=== PATIENT | female | born 1945 | race Caucasian/White ===

== ENCOUNTER → 2016-07-28 | Day surgery (SDC) | payer BC, MEDICARE ==
[~2016-07-28] MED LIST: ACET500T33 PO; CALC-507 PO; CHLO25TA PO; DEXAMETHASONE SOD PHOS 20 MG/5 ML VIAL. ONE; DICL100G7 TP; DICY20TA3 PO; ESOM40CA PO; FENTANYL PF 100 MCG/2 ML VIAL. IV PRN; FENTANYL PF 100 MCG/2 ML VIAL. ONE; GLUC1TAB71 PO; GLYCOPYRROLATE 1 MG/5 ML VIAL. ONE; IOHEXOL 300 MG/ML 50 ML VIAL. IV ONE; IOHEXOL 300 MG/ML 50 ML VIAL. ONE; IRBE300T3 PO; IV RINGERS,LACTATED 1000ML 1,000 ML IV SCH; LIDOCAINE; LIDOCAINE 1% 1 ML SYRINGE. ID PRN; LIDOCAINE 2% 100 MG/5 ML DISP.SYRIN. ONE; METO100T11 PO; MIDAZOLAM HCL 2 MG/2 ML VIAL. IV PRN; MULT-245 PO; NEOSTIGMINE METHYLSULFATE 5 MG/5 ML SYRINGE. ONE; ONDANSETRON PF 4 MG/2 ML VIAL. ONE; PROPOFOL 10 MG/ML (20ML) VIAL. IV ONE; PROPOFOL 20 ML IV ONE; ROCURONIUM 50 MG/5 ML VIAL. ONE; TRAM50TA PO; URSO300C13 PO; [UNRECOGNIZED DRUG - OTHER]
[2016-07-28 11:03] LABS: ALBUMIN 3.5 g/dL (3.4-5.0); DIRECT BILIRUBIN 0.1 mg/dL (0.0-0.2); TOTAL BILIRUBIN 0.4 mg/dL (0.2-1.0); TOTAL PROTEIN 7.2 g/dL (6.4-8.2)
[2016-07-28 12:13] VITALS: BP 142/73
--- NOTE | 2016-07-28 12:13 | RAD ---
ERCP, 07/28/2016: History: Common bile duct calculi, pain 3 spot films from an ERCP performed by Dr. Freitas are presented for review. 2.28 minutes of fluoroscopy time was utilized. The biliary tree was partially opacified via an endoscopically placed cannula. The common bile duct is mildly dilated. On the first 2 images there appears to be a filling defect in the distal common bile duct at the ampulla suggesting a calculus. This presumed calculus has been been displaced more superiorly in the duct on image #3. Reportedly stone removal with balloon sweeping of the duct was performed.
== END ==
LOC: ENDOS 09:26
PROVIDERS: ATTEND Internal Medicine Gastroenterology
DX: K80.50 Calculus of bile duct without cholangitis or cholecystitis without obstruction (principal); K58.9 Irritable bowel syndrome, unspecified; I10 Essential (primary) hypertension; M19.90 Unspecified osteoarthritis, unspecified site; Z80.1 Family history of malignant neoplasm of trachea, bronchus and lung
CPT/HCPCS: 36415; 43264; 74330; 80076; C1726; J1100; J2405; J2704; J2710; J3010; J3490; Q9967

== ENCOUNTER → 2017-01-04 | Day surgery (SDC) | payer BC ==
[~2017-01-04] MED LIST changes: +DICL100G18 TP; -DICL100G7 TP; -FENTANYL PF 100 MCG/2 ML VIAL. IV PRN; -FENTANYL PF 100 MCG/2 ML VIAL. ONE; +HYDROmorphone 2 MG/ML VIAL IV PRN; +IOHEXOL 300 MG/ML 100ML VIAL. INT CAT ONE; +IOHEXOL 300 MG/ML 100ML VIAL. ONE; -IOHEXOL 300 MG/ML 50 ML VIAL. IV ONE; -IOHEXOL 300 MG/ML 50 ML VIAL. ONE; -LIDOCAINE 2% 100 MG/5 ML DISP.SYRIN. ONE; +LIDOCAINE 2% PF Vial for OR 5 ML VIAL. ONE; -MIDAZOLAM HCL 2 MG/2 ML VIAL. IV PRN; +MIDAZOLAM HCL/PF 2 MG/2 ML VIAL. IV PRN; +MORPHINE SULFATE 2 MG/ML DISP.SYRIN. IV PRN; +ONDANSETRON PF 4 MG/2 ML VIAL. IV PRN; -ONDANSETRON PF 4 MG/2 ML VIAL. ONE; +PROCHLORPERAZINE 10 MG/2 ML VIAL. IV PRN; -PROPOFOL 10 MG/ML (20ML) VIAL. IV ONE; +fentaNYL PF VIAL 100 MCG/2 ML VIAL IV PRN
--- NOTE | 2017-01-04 15:29 | RAD ---
ERCP, 01/04/2017: History: Abdominal pain, common duct calculi 7 spot films are presented from an ERCP performed by Dr. Freitas. 1 minute and 58 seconds of fluoroscopy time was utilized. The biliary tree was partially opacified via an endoscopically placed cannula. Initial images demonstrate dilatation of the common bile duct with several filling defects in the duct compatible with common duct calculi. Balloon sweeping of the duct was reportedly performed with stone removal. On the last film of the series, an inflated balloon is present in the distal duct. No residual calculi are seen in the duct superior to this level.
[2017-01-04 15:30] VITALS: BP 153/70
== END | disposition home or self-care (01) ==
LOC: SURG 12:58
PROVIDERS: ATTEND Internal Medicine Gastroenterology
DX: K80.50 Calculus of bile duct without cholangitis or cholecystitis without obstruction (principal); I10 Essential (primary) hypertension; M19.90 Unspecified osteoarthritis, unspecified site; Z88.0 Allergy status to penicillin; Z88.3 Allergy status to other anti-infective agents; Z72.89 Other problems related to lifestyle; Z86.69 Personal history of other diseases of the nervous system and sense organs; Z90.49 Acquired absence of other specified parts of digestive tract; Z86.718 Personal history of other venous thrombosis and embolism; Z98.51 Tubal ligation status; Z88.1 Allergy status to other antibiotic agents
CPT/HCPCS: 43264; 74328; C1726; C1757; J1100; J2001; J2405; J2704; J2710; J3490; Q9967

== ENCOUNTER → 2017-05-22 | Day surgery (SDC) | payer BC ==
[~2017-05-22] MED LIST changes: -DEXAMETHASONE SOD PHOS 20 MG/5 ML VIAL. ONE; -GLYCOPYRROLATE 1 MG/5 ML VIAL. ONE; -HYDROmorphone 2 MG/ML VIAL IV PRN; -IOHEXOL 300 MG/ML 100ML VIAL. INT CAT ONE; +IOHEXOL 350 MG/ML 50 ML VIAL. IV ONE; -LIDOCAINE 1% 1 ML SYRINGE. ID PRN; -LIDOCAINE 2% PF Vial for OR 5 ML VIAL. ONE; +METO-247 PO; -METO100T11 PO; -MIDAZOLAM HCL/PF 2 MG/2 ML VIAL. IV PRN; -MORPHINE SULFATE 2 MG/ML DISP.SYRIN. IV PRN; -NEOSTIGMINE METHYLSULFATE 5 MG/5 ML SYRINGE. ONE; -ONDANSETRON PF 4 MG/2 ML VIAL. IV PRN; -PROCHLORPERAZINE 10 MG/2 ML VIAL. IV PRN; -PROPOFOL 20 ML IV ONE; +PROPOFOL 40 ML IV ONE; -ROCURONIUM 50 MG/5 ML VIAL. ONE; +SCOPOLAMINE 1.5MG PATCH. TD ONE; +SCOPOLAMINE 1.5MG PATCH. TD SCH; -fentaNYL PF VIAL 100 MCG/2 ML VIAL IV PRN
--- NOTE | 2017-05-22 16:48 | RAD ---
ERCP BILIARY DUCT SYSYEM Clinical Indication: Common biliary ductal stone, ERCP Comparison: ERCP fluoroscopic images dated 01/04/2017 Findings/impression: 3 fluoroscopic images during ERCP by Dr. Freitas were obtained. Fluoroscopic time was 2.1 minutes. The biliary tree was partially opacified via an endoscopically placed cannula. Initial images demonstrate dilatation of the common bile duct with several filling defects in the duct compatible with common duct calculi. Balloon sweep was then performed for stone removal. Please refer to operative report for full details.
[2017-05-22 17:00] VITALS: BP 161/75
--- NOTE | 2017-05-22 23:18 | CONS ---
DATE OF CONSULTATION: 05/22/2017 REASON FOR CONSULTATION: Recurrent common bile duct stone, status post cholecystectomy, status post endoscopic sphincterotomy. HISTORY OF PRESENT ILLNESS: A 71-year-old female with past medical history significant for recurrent common duct stones as well as hypertension, GERD and colonic diverticulosis, is seen with recurrent pain, nausea, vomiting and abdominal discomfort. She had previously undergone a second opinion at [facility] for additional therapy, medically possible [place], but her lipid panel was not conducive in the interim. Numerous mortalities have occurred from the medication and it is not recommended. With recurrent symptoms, interval ERCP with stone extractions is advised. PAST MEDICAL HISTORY: Hypertension, recurrent common duct stones and colonic diverticulosis. ALLERGIES: PENICILLIN, LEVOFLOXACIN, NITROFURANTOIN, SULFAMETHOXAZOLE AND TRIMETHOPRIM. MEDICATIONS: Include calcium, chlorthalidone, diclofenac, dicyclomine, Nexium, glucosamine, irbesartan, metoprolol, multivitamin, tramadol and ursodiol. SOCIAL HISTORY: She is retired. She does not drink or smoke. FAMILY HISTORY: Significant for lung cancer with her mother. REVIEW OF SYSTEMS: Per records. PAST SURGICAL HISTORY: Status post cholecystectomy, back surgery, hysterectomy and tubal ligation. PHYSICAL EXAMINATION: GENERAL: Reveals well-nourished, well-developed female. VITAL SIGNS: Temperature is 98.4, pulse 96 and respirations 20. HEENT EXAMINATION: Normocephalic and atraumatic. Pupils and extraocular muscles not tested. Sclerae anicteric. NECK: Supple. LUNGS: Clear. CARDIOVASCULAR EXAMINATION: Reveals an S1, S2, without S3, S4 or appreciable murmur. ABDOMEN: Exam reveals soft abdomen. Normal bowel sounds, without appreciable hepatosplenomegaly. EXTREMITIES: Exam reveals no cyanosis, clubbing or edema. IMPRESSION: Recurrent common duct stones and abdominal pain, most likely secondary to lithogenic bile. Recommend interval ERCP with possible stone extractions. Risks and benefits have been discussed. The patient with risk of pancreatitis and she is willing to proceed. TD MONTAÑO MD DR: LAURA/soren JOB#: [id number] / [id number]
== END | disposition home or self-care (01) ==
LOC: ENDOS 14:34
PROVIDERS: ATTEND Internal Medicine Gastroenterology
DX: K80.50 Calculus of bile duct without cholangitis or cholecystitis without obstruction (principal); K21.9 Gastro-esophageal reflux disease without esophagitis; I10 Essential (primary) hypertension; Z88.0 Allergy status to penicillin; Z88.2 Allergy status to sulfonamides; Z88.8 Allergy status to other drugs, medicaments and biological substances; Z90.49 Acquired absence of other specified parts of digestive tract; Z86.718 Personal history of other venous thrombosis and embolism; Z86.69 Personal history of other diseases of the nervous system and sense organs
CPT/HCPCS: 43264; 74328; C1726; C1757; J2704; Q9967

== ENCOUNTER 2018-02-14 11:58 | Observation (INO) | payer BC, MEDICARE ==
[~2018-02-14] VITALS: Ht 157.5 cm; Wt 86.8 kg
[~2018-02-14 11:58] MED LIST changes: -IOHEXOL 300 MG/ML 100ML VIAL. ONE; -IOHEXOL 350 MG/ML 50 ML VIAL. IV ONE; +LIDOCAINE 1% PF 2 ML VIAL. ID PRN; +MIDAZOLAM HCL/PF 2 MG/2 ML VIAL. IV PRN; -PROPOFOL 40 ML IV ONE; -SCOPOLAMINE 1.5MG PATCH. TD ONE; -SCOPOLAMINE 1.5MG PATCH. TD SCH; +fentaNYL PF VIAL 100 MCG/2 ML VIAL IV PRN
[2018-02-14] MEDS ORDERED: MELO15TA23 PO (12:58)
[2018-02-14] MEDS ORDERED: GABA-586 PO (12:58)
[2018-02-14] MEDS ORDERED: IV RINGERS,LACTATED 1000ML 1,000 ML IV ONE (13:00)
[2018-02-14] MEDS ORDERED: KETOROLAC 30 MG/ML VIAL. IV ONE (13:00)
[2018-02-14] MEDS ORDERED: DEXAMETHASONE SOD PHOS 20 MG/5 ML VIAL. ONE (13:18)
[2018-02-14] MEDS ORDERED: LIDOCAINE 2% PF Vial for OR 5 ML VIAL. ONE (13:18)
[2018-02-14] MEDS ORDERED: FAMOTIDINE 20 MG/2 ML VIAL ONE (13:18)
[2018-02-14] MEDS ORDERED: SUCCINYLCHOLINE 200 MG/10 ML VIAL. ONE (13:18)
[2018-02-14] MEDS ORDERED: PROPOFOL 20 ML IV ONE ×2 (13:18→13:42)
[2018-02-14] MEDS ORDERED: ONDANSETRON PF 4 MG/2 ML VIAL. ONE (13:18)
[2018-02-14] MEDS ORDERED: IOHEXOL 300 MG/ML 100ML VIAL. ONE (13:19)
[2018-02-14] MEDS ORDERED: PROPOFOL 60 ML IV ONE (13:22)
[2018-02-14] MEDS ORDERED: IOHEXOL 300 MG/ML 100ML VIAL. IV ONE (13:43)
[2018-02-14] MEDS ORDERED: GLYCOPYRROLATE 1 MG/5 ML VIAL. ONE (13:45)
[2018-02-14] MEDS ORDERED: HYDROcodone/APAP 7.5/325MG 1 TAB TABLET ONE (15:14)
[2018-02-14] MEDS ORDERED: HYDROcodone/APAP 7.5/325MG 1 TAB TABLET PO ONE (15:30)
--- NOTE | 2018-02-14 15:43 | CONS ---
DATE OF CONSULTATION: 02/14/2018 REFERRING PHYSICIAN: Dr. Luis Manuel Tee. REASON: Recurrent common duct stones. HISTORY OF PRESENT ILLNESS: This is a 72-year-old female whose past medical history is significant for hypertension, choledocholithiasis, colonic diverticulosis who was seen for interval ERCP with stone extraction. She has been maintained on Actigall, status post cholecystectomy, status post sphincterotomy. She is here with recurrent pain. Approximately 9 months ago, a second opinion at was obtained and no additional therapy was recommended at that time. PAST MEDICAL HISTORY: Hypertension, recurrent common duct stones, colonic diverticular disease. ALLERGIES: PENICILLIN, ERYTHROMYCIN, LEVOFLOXACIN, NITROFURANTOIN. MEDICATIONS: Chlorthalidone, diclofenac, dicyclomine, omeprazole, gabapentin, glucosamine, irbesartan, meloxicam, metoprolol. SOCIAL HISTORY: Does not drink or smoke. FAMILY HISTORY: Significant for lung cancer with her mother. REVIEW OF SYSTEMS: Status post cholecystectomy, back surgery, hysterectomy, tubal ligation. REVIEW OF SYSTEMS: Per records. PHYSICAL EXAMINATION: GENERAL: A well-nourished, well-developed female who is alert and cooperative, in no acute distress. VITAL SIGNS: Temperature is 98.1, pulse 78, respirations 20. HEENT: Normocephalic and atraumatic head. Pupils and extraocular muscles are not tested. Sclerae are anicteric. NECK: Supple. LUNGS: Clear. CARDIOVASCULAR: Reveals an S1, S2 without S3, S4 or appreciable murmur. ABDOMEN: Reveals soft abdomen, normal bowel sounds, without appreciable hepatosplenomegaly. Multiple surgical incisions. EXTREMITIES: No cyanosis, clubbing, edema. IMPRESSION: Choledocholithiasis, recurrent. We will recommend ERCP and stone extraction. Risks and benefits of procedure including risk of hemorrhage and perforation were discussed and the patient is willing to proceed at this time. TD MONTAÑO MD DR: LAURA/soren JOB#: [id number] / [id number]
--- NOTE | 2018-02-14 15:55 | PDOC ---
Subjective: Subjective: Burning upper abd pain w/ vomiting after ERCP w/ stone extraction. Desires admission. Objective: Vital Signs: Vital Signs Date Time Temp Pulse Resp B/P (MAP) Pulse Ox O2 Delivery O2 Flow Rate FiO2 02/14/18 15:51 71 16 123/59 98 Room Air 02/14/18 14:09 97.3 10 97.3 PE: GEN: NAD, sitting in chair in outpt LUNGS: CTAB HEART: RRR ABD: BS+, soft, epigastric discomfort NEURO/PSYCH: A & O 3 A/P: Recurrent choledocholithiasis Abd pain and n/v s/p interval ERCP -- Plans to admit - d/w Dr. Molina. NPO w/ ice chips, labs in a.CAREY Delong Feb 14, 2018 15:55
--- NOTE | 2018-02-14 16:06 | PDOC1 ---
History and Physical Date of Admission Date of Admission DATE: 02/14/18 TIME: 16:06 Source Source: Chart review, Patient History of Present Illness History of Present Illness Serenity is a 72-year-old female with Arlet removal about 50 years, ago, now with recurrent stones and pain , choledocholithiasis, colonic diverticulosis had pain s/p ERCP with stone extraction today she has pain intermittently on Actigall, status post sphincterotomy. pain post procedure, she requested admit for obs overnight Past Medical History Past Medical History arlet Cardiovascular: HTN GI: Diverticulosis, Other (choledocholithiasis) Social History Smoke: No ALCOHOL: none Drugs: None Current Medications Current Medications Current Medications Midazolam HCl (Versed) 2 mg PRN 1X PRN IV PRIOR TO PROCEDURE; Start 02/14/18 at 07:15; Stop 02/15/18 at 07:14 Fentanyl Citrate (Fentanyl 2ml Vial) 25 mcg PRN Q5MIN PRN IV X 2 DOSES FOR PAIN ; Start 02/14/18 at 07:15; Stop 02/15/18 at 07:14 Fentanyl Citrate (Fentanyl 2ml Vial) 50 mcg PRN Q5MIN PRN IV X 2 DOSES FOR PAIN ; Start 02/14/18 at 07:15; Stop 02/15/18 at 07:14 Ringer's Solution 1,000 ml @ 125 mls/hr Q8H IV Last administered on 02/14/18at 13:11; Start 02/14/18 at 07:06; Stop 02/14/18 at 19:05 Lidocaine HCl (Xylocaine-Mpf 1% 2ml Vial) 2 ml 1X PRN PRN ID IV START; Start at 07:15; Stop 02/15/18 at 07:14 Ketorolac Tromethamine (Toradol 30mg Vial) 30 mg 1X ONCE IV Last administered on 02/14/18at 13:13; Start 02/14/18 at 13:00; Stop 02/14/18 at 13:01; Status DC Ringer's Solution 1,000 ml @ 75 mls/hr 1X ONCE IV ; Start 02/14/18 at 13:00; Stop 02/15/18 at 02:19 Ondansetron HCl (Zofran) 4 mg STK-MED ONCE .ROUTE ; Start 02/14/18 at 13:18; Stop 02/14/18 at 13:19; Status DC Dexamethasone Sodium Phosphate (Decadron) 20 mg STK-MED ONCE .ROUTE ; Start at 13:18; Stop 02/14/18 at 13:19; Status DC Propofol 20 ml @ As Directed STK-MED ONCE IV ; Start 02/14/18 at 13:18; Stop at 13:19; Status DC Lidocaine HCl (Lidocaine Pf 2% Vial) 5 ml STK-MED ONCE .ROUTE ; Start 02/14/18 at 13:18; Stop 02/14/18 at 13:19; Status DC Famotidine (Pepcid Vial) 20 mg STK-MED ONCE .ROUTE ; Start 02/14/18 at 13:18; Stop 02/14/18 at 13:19; Status DC Succinylcholine Chloride (Anectine) 200 mg STK-MED ONCE .ROUTE ; Start 02/14/18 at 13:18; Stop 02/14/18 at 13:19; Status DC Iohexol (Omnipaque 300 Mg/ml) 100 ml STK-MED ONCE .ROUTE ; Start 02/14/18 at 13: 19; Stop 02/14/18 at 13:20; Status DC Propofol 60 ml @ As Directed STK-MED ONCE IV ; Start 02/14/18 at 13:22; Stop at 13:23; Status DC Propofol 20 ml @ As Directed STK-MED ONCE IV ; Start 02/14/18 at 13:42; Stop at 13:43; Status DC Glycopyrrolate (Robinul) 1 mg STK-MED ONCE .ROUTE ; Start 02/14/18 at 13:45; Stop 02/14/18 at 13:46; Status DC Iohexol (Omnipaque 300 Mg/ml) 100 ml STK-MED ONCE IV Last administered on at 13:43; Start 02/14/18 at 13:43; Stop 02/14/18 at 13:57; Status DC Acetaminophen/ Hydrocodone Bitart (Lortab 7.5/325) 1 tab 1X ONCE PO Last administered on 02/14/18at 15:18; Start 02/14/18 at 15:30; Stop 02/14/18 at 15:31 ; Status DC Acetaminophen/ Hydrocodone Bitart (Lortab 7.5/325) 1 tab STK-MED ONCE .ROUTE ; Start 02/14/18 at 15:14; Stop 02/14/18 at 15:15; Status DC Acetaminophen (Tylenol) 1,000 mg TID PO ; Start 02/14/18 at 21:00; Status UNV Chlorthalidone (Thalitone) 12.5 mg QODAY PO ; Start 02/16/18 at 09:00; Status UNV Metoprolol Succinate (Toprol Xl) 50 mg DAILY PO ; Start 02/15/18 at 09:00; Status UNV Non-Formulary Medication (Dicyclomine Hcl ) 1 tab DAILY PO ; Start 02/15/18 at 09:00; Status UNV Non-Formulary Medication (Esomeprazole Magnesium (Nexium Capsule)) 1 cap DAILY PO ; Start 02/15/18 at 09:00; Status UNV Non-Formulary Medication (Gabapentin ) 300 mg TID PO ; Start 02/14/18 at 21:00; Status UNV Non-Formulary Medication (Irbesartan ) 1 tab DAILY PO ; Start 02/15/18 at 09:00 ; Status UNV Non-Formulary Medication (Meloxicam ) 1 tab DAILY PO ; Start 02/15/18 at 09:00; Status UNV Non-Formulary Medication (Ursodiol (Actigall)) 600 mg BID PO ; Start 02/14/18 at 21:00; Status UNV Active Scripts Active Reported Meloxicam 15 Mg Tablet 1 Tab PO DAILY Gabapentin 300 Mg Capsule 300 Mg PO TID Irbesartan 300 Mg Tablet 1 Tab PO DAILY Voltaren (Diclofenac Sodium) 100 Gm Gel..gram. 100 Gm TP Metoprolol Succinate ( Xl ) (Metoprolol Succinate) 100 Mg Tab.er.24h 50 Mg PO DAILY Multi Vitamin Daily (Multivitamin) 1 Each Tablet 1 Each PO Osteo Bi-Flex Caplet (Glucosamine/D3/Boswellia Cierra) 1 Each Tablet 1 Each PO Calcium 600 + D Tablet (Calcium Carbonate/Vitamin D3) 1 Each Tablet 1 Each PO Tylenol Extra Strength (Acetaminophen) 500 Mg Tablet 1,000 Mg PO TID Actigall (Ursodiol) 300 Mg Capsule 600 Mg PO BID Tramadol Hcl 50 Mg Tablet 1 Tab PO TID Dicyclomine Hcl 20 Mg Tablet 1 Tab PO DAILY Nexium Capsule (Esomeprazole Magnesium) 40 Mg Capsule.dr 1 Cap PO DAILY Chlorthalidone 25 Mg Tablet 0.5 Tab PO QODAY Irbesartan 300 Mg Tablet 1 Tab PO DAILY Allergies Allergies: Coded Allergies: Penicillins (Verified Allergy, Intermediate, Rash, 02/14/18) cefdinir (Verified Allergy, Intermediate, Rash, 02/14/18) levofloxacin (Verified Allergy, Intermediate, Rash, 02/14/18) nitrofurantoin (Verified Allergy, Intermediate, Rash, 02/14/18) sulfamethoxazole (Verified Allergy, Intermediate, Rash, 02/14/18) trimethoprim (Verified Allergy, Intermediate, Rash, 02/14/18) erythromycin base (Verified Adverse Reaction, Intermediate, Nausea and Vomiting, 02/14/18) ROS General: No: Chills, Night Sweats, Fatigue, Malaise, Appetite, Other PSYCHOLOGICAL ROS: No: Anxiety, Behavioral Disorder, Concentration difficultie , Decreased libido, Depression, Disorientation, Hallucinations, Hostility, Irritablity, Memory difficulties, Mood Swings, Obsessive thoughts, Physical abuse, Sexual abuse, Sleep disturbances, Suicidal ideation, Other Eyes: No Blurry vision, No Decreased vision, No Double vision, No Dry eyes, No Excessive tearing, No Eye Pain, No Itchy Eyes, No Loss of vision, No Photophobia , No Scotomata, No Uses contacts, No Uses glasses, No Other HEENT: No: Heacaches, Visual Changes, Hearing change, Nasal congestion, Nasal discharge, Oral lesions, Sinus pain, Sore Throat, Epistaxis, Sneezing, Snoring, Tinnitus, Vertigo, Vocal changes, Other Respiratory: No: Cough, Hemoptysis, Orthopnea, Pleuritic Pain, Shortness of breath, SOB with excertion, Sputum Changes, Stridor, Tachypnea, Wheezing, Other Gastrointestinal: Yes Nausea, Yes Abdominal Pain Genitourinary: No Dysuria, No Frequency, No Incontinence, No Hematuria, No Retention, No Discharge, No Urgency, No Pain, No Flank Pain, No Other, No , No , No , No , No , No , No Musculoskeletal: No Gait Disturbance, No Joint Pain, No Joint Stiffness, No Joint Swelling, No Muscle Pain, No Muscular Weakness, No Pain In:, No Swelling In:, No Other Neurological: No Behavorial Changes, No Bowel/Bladder ControlChng, No Confusion , No Dizziness, No Gait Disturbance, No Headaches, No Impaired Coord/balance, No Memory Loss, No Numbness/Tingling, No Seizures, No Speech Problems, No Tremors, No Visual Changes, No Weakness, No Other Skin: No Dry Skin, No Eczema, No Hair Changes, No Lumps, No Mole Changes, No Mottling, No Nail Changes, No Pruritus, No Rash, No Skin Lesion Changes, No Other, No Acne Physical Exam General: Alert, Oriented X3, Cooperative, No acute distress HEENT: Atraumatic, EOMI, Mucous membr. moist/pink Lungs: Normal air movement Heart: S1S2, no murmurs Abdomen: Normal bowel sounds, Soft (tender mid) Rectal Exam: not examined Extremities: No cyanosis, No edema, Normal pulses Skin: Other (small wound in groin documented by RN) Neuro: Normal tone, Sensation intact Psych/Mental Status: Mood NL Vitals Vitals Vital Signs Date Time Temp Pulse Resp B/P (MAP) Pulse Ox O2 Delivery O2 Flow Rate FiO2 02/14/18 15:51 71 16 123/59 98 Room Air 02/14/18 14:09 97.3 10 97.3 VTE Prophylaxis Ordered VTE Prophylaxis Devices: No VTE Pharmacological Prophylaxi: No Assessment/Plan Assessment/Plan acute abd pain choledocholithiasis obesity, BMI 35 htn obs TY PARMAR MD Feb 14, 2018 16:06
[2018-02-14] MEDS ORDERED: fentaNYL PF VIAL 100 MCG/2 ML VIAL IV PRN (16:15)
[2018-02-14] MEDS ORDERED: oxyCODONE/APAP 7.5/325 1 TAB TABLET PO PRN (16:15)
--- NOTE | 2018-02-14 16:24 | RAD ---
ERCP, 02/14/2018: HISTORY: Common duct calculus 7 spot films from an ERCP performed by Dr. Freitas are presented for review. 3 minutes and 8 seconds of fluoroscopy time was utilized. Balloon sweeping of the duct was performed. On the initial images there is a small filling defect in the partially opacified distal common bile duct compatible with a retained calculus. On image #7 the bile ducts are fairly well opacified and no residual calculus is seen. The common bile duct appears chronically dilated. Electronically signed by: Florian Enamorado MD (02/14/2018 4:21 PM) [facility]
[2018-02-14 16:45] VITALS: BP 145/56
[2018-02-14 19:00] VITALS: BP 151/41
[2018-02-14] MEDS ORDERED: ECHI350C PO (20:21)
[2018-02-14] MEDS ORDERED: GLUC100016 PO (20:21)
[2018-02-14] MEDS ORDERED: GABA600T2 PO (20:21)
[2018-02-14] MEDS ORDERED: MULT-245 PO (20:21)
[2018-02-14] MEDS ORDERED: DICL100G24 TP (20:21)
[2018-02-14] MEDS ORDERED: URSO300C26 PO (20:21)
[2018-02-14] MEDS ORDERED: ASPI-630 PO (20:21)
[2018-02-14] MEDS ORDERED: LACT1CAP2 PO (20:21)
[2018-02-14] MEDS ORDERED: TRAM50TA PO (20:21)
[2018-02-14] MEDS: ACETAMINOPHEN 500 MG TABLET PO SCH (21:08)
[2018-02-14] MEDS: GABAPENTIN 300 MG CAPSULE. PO SCH (21:08)
[2018-02-14] MEDS: URSODIOL 300 MG CAPSULE. PO SCH (21:08)
[2018-02-14 23:00] VITALS: BP 138/66
[2018-02-15 03:00] VITALS: BP 124/58
[2018-02-15 07:00] VITALS: BP 133/67
[2018-02-15 07:03] LABS: CALCIUM 10.2 mg/dL (8.5-10.1); GFR 54.3; POTASSIUM 4.2 mmol/L (3.5-5.1)
[2018-02-15 07:08] LABS: ALBUMIN 3.5 g/dL (3.4-5.0); ALBUMIN/GLOBULIN RATIO 0.8 (1.0-1.7); TOTAL BILIRUBIN 0.5 mg/dL (0.2-1.0); TOTAL PROTEIN 7.8 g/dL (6.4-8.2)
[2018-02-15 07:09] LABS: BASO % 0 % (0-3); EOS % 0 % (0-3); HEMATOCRIT 34.7 % (36.0-47.0); HEMOGLOBIN 11.3 g/dL (12.0-15.5); LYMPH # 1.4 x10^3/uL (1.0-4.8); LYMPH % 11 % (24-48); MEAN CORPUSCULAR HEMOGLOBIN 28 pg (25-35); MEAN CORPUSCULAR HGB CONC 33 g/dL (31-37); MEAN CORPUSCULAR VOLUME 86 fL (79-100); MONO % 8 % (0-9); NEUT # 10.7 x10^3uL (1.8-7.7); NEUT % 82 % (31-73); PLATELET COUNT 439 x10^3/uL (140-400); RED BLOOD COUNT 4.05 x10^6/uL (3.50-5.40); RED CELL DISTRIBUTION WIDTH 13.6 % (11.5-14.5); WHITE BLOOD COUNT 13.1 x10^3/uL (4.0-11.0)
[2018-02-15] MEDS ORDERED: PANTOPRAZOLE 40 MG TABLET.DR. PO SCH (07:30)
[2018-02-15] MEDS: ACETAMINOPHEN 500 MG TABLET PO SCH (08:07)
[2018-02-15] MEDS: URSODIOL 300 MG CAPSULE. PO SCH (08:08)
[2018-02-15] MEDS: GABAPENTIN 300 MG CAPSULE. PO SCH (08:09)
[2018-02-15] MEDS ORDERED: METOPROLOL SUCC 24HR ER 50 MG TAB.ER.24H. PO SCH (09:00)
[2018-02-15] MEDS ORDERED: MELOXICAM 7.5 MG TABLET PO SCH (09:00)
[2018-02-15] MEDS ORDERED: LOSARTAN POTASSIUM 50 MG TABLET. PO SCH (09:00)
[2018-02-15] MEDS ORDERED: DICYCLOMINE HCL 10 MG CAPSULE PO SCH (09:00)
--- NOTE | 2018-02-15 09:07 | PDOC ---
Subjective: Subjective: Feels better, has been walking around w/ walker. Denies abd pain and n/v. Had mashed potatoes last night and eggs and toast this morning. Did have a yellowish runny stool - not unusual for her from time to time. Has questions about labs. Objective: Vital Signs: Vital Signs Date Time Temp Pulse Resp B/P (MAP) Pulse Ox O2 Delivery O2 Flow Rate FiO2 02/15/18 08:09 77 133/67 02/15/18 07:00 98.4 20 98 Room Air 98.4 02/14/18 14:09 10 Imaging: ERCP 7 spot films from an ERCP performed by Dr. Freitas are presented for review. 3 minutes and 8 seconds of fluoroscopy time was utilized. Balloon sweeping of the duct was performed. On the initial images there is a small filling defect in the partially opacified distal common bile duct compatible with a retained calculus. On image #7 the bile ducts are fairly well opacified and no residual calculus is seen. The common bile duct appears chronically dilated. PE: GEN: NAD, up to chair, smiling LUNGS: CTAB HEART: RRR ABD: NABS, S/ND/NT NEURO/PSYCH: A & O 3 A/P: Recurrent choledocholithiasis Abd pain and n/v s/p interval ERCP - resolved -- Symptoms resolved, tolerating PO. Okay to DC, follow-up w/ Dr. Freitas. CAREY THOMPSON Feb 15, 2018 09:07
--- NOTE | 2018-02-15 09:34 | PDOC3 ---
Discharge Summary Visit Information Date of Admission: Feb 14, 2018 Date of Discharge: Feb 15, 2018 Admitting Diagnosis Comment: Post ERCP pain Brief Hospital Course Allergies Allergies Coded Allergies Type Severity Reaction Last Updated Verified Penicillins Allergy Intermediate Rash 02/14/18 Yes cefdinir Allergy Intermediate Rash 02/14/18 Yes levofloxacin Allergy Intermediate Rash 02/14/18 Yes nitrofurantoin Allergy Intermediate Rash 02/14/18 Yes sulfamethoxazole Allergy Intermediate Rash 02/14/18 Yes trimethoprim Allergy Intermediate Rash 02/14/18 Yes erythromycin base Adverse Reaction Intermediate Nausea and Vomiting 02/14/18 Yes Vital Signs Vital Signs Date Time Temp Pulse Resp B/P (MAP) Pulse Ox O2 Delivery O2 Flow Rate FiO2 02/15/18 08:09 77 133/67 02/15/18 07:00 98.4 20 98 Room Air 98.4 02/14/18 14:09 10 Lab Results Laboratory Tests Test 02/15/18 06:37 White Blood Count 13.1 x10^3/uL (4.0-11.0) Red Blood Count 4.05 x10^6/uL (3.50-5.40) Hemoglobin 11.3 g/dL (12.0-15.5) Hematocrit 34.7 % (36.0-47.0) Mean Corpuscular Volume 86 fL (79-100) Mean Corpuscular Hemoglobin 28 pg (25-35) Mean Corpuscular Hemoglobin Concent 33 g/dL (31-37) Red Cell Distribution Width 13.6 % (11.5-14.5) Platelet Count 439 x10^3/uL (140-400) Neutrophils (%) (Auto) 82 % (31-73) Lymphocytes (%) (Auto) 11 % (24-48) Monocytes (%) (Auto) 8 % (0-9) Eosinophils (%) (Auto) 0 % (0-3) Basophils (%) (Auto) 0 % (0-3) Neutrophils # (Auto) 10.7 x10^3uL (1.8-7.7) Lymphocytes # (Auto) 1.4 x10^3/uL (1.0-4.8) Monocytes # (Auto) 1.0 x10^3/uL (0.0-1.1) Eosinophils # (Auto) 0.0 x10^3/uL (0.0-0.7) Basophils # (Auto) 0.0 x10^3/uL (0.0-0.2) Sodium Level 132 mmol/L (136-145) Potassium Level 4.2 mmol/L (3.5-5.1) Chloride Level 96 mmol/L (98-107) Carbon Dioxide Level 29 mmol/L (21-32) Anion Gap 7 (6-14) Blood Urea Nitrogen 19 mg/dL (7-20) Creatinine 1.0 mg/dL (0.6-1.0) Estimated GFR (Cockcroft-Gault) 54.3 BUN/Creatinine Ratio 19 (6-20) Glucose Level 107 mg/dL (70-99) Calcium Level 10.2 mg/dL (8.5-10.1) Total Bilirubin 0.5 mg/dL (0.2-1.0) Aspartate Amino Transf (AST/SGOT) 26 U/L (15-37) Alanine Aminotransferase (ALT/SGPT) 38 U/L (14-59) Alkaline Phosphatase 99 U/L (46-116) Total Protein 7.8 g/dL (6.4-8.2) Albumin 3.5 g/dL (3.4-5.0) Albumin/Globulin Ratio 0.8 (1.0-1.7) Amylase Level 116 U/L (25-115) Lipase 97 U/L (73-393) Laboratory Tests Test 02/15/18 06:37 White Blood Count 13.1 x10^3/uL (4.0-11.0) Red Blood Count 4.05 x10^6/uL (3.50-5.40) Hemoglobin 11.3 g/dL (12.0-15.5) Hematocrit 34.7 % (36.0-47.0) Mean Corpuscular Volume 86 fL (79-100) Mean Corpuscular Hemoglobin 28 pg (25-35) Mean Corpuscular Hemoglobin Concent 33 g/dL (31-37) Red Cell Distribution Width 13.6 % (11.5-14.5) Platelet Count 439 x10^3/uL (140-400) Neutrophils (%) (Auto) 82 % (31-73) Lymphocytes (%) (Auto) 11 % (24-48) Monocytes (%) (Auto) 8 % (0-9) Eosinophils (%) (Auto) 0 % (0-3) Basophils (%) (Auto) 0 % (0-3) Neutrophils # (Auto) 10.7 x10^3uL (1.8-7.7) Lymphocytes # (Auto) 1.4 x10^3/uL (1.0-4.8) Monocytes # (Auto) 1.0 x10^3/uL (0.0-1.1) Eosinophils # (Auto) 0.0 x10^3/uL (0.0-0.7) Basophils # (Auto) 0.0 x10^3/uL (0.0-0.2) Sodium Level 132 mmol/L (136-145) Potassium Level 4.2 mmol/L (3.5-5.1) Chloride Level 96 mmol/L (98-107) Carbon Dioxide Level 29 mmol/L (21-32) Anion Gap 7 (6-14) Blood Urea Nitrogen 19 mg/dL (7-20) Creatinine 1.0 mg/dL (0.6-1.0) Estimated GFR (Cockcroft-Gault) 54.3 BUN/Creatinine Ratio 19 (6-20) Glucose Level 107 mg/dL (70-99) Calcium Level 10.2 mg/dL (8.5-10.1) Total Bilirubin 0.5 mg/dL (0.2-1.0) Aspartate Amino Transf (AST/SGOT) 26 U/L (15-37) Alanine Aminotransferase (ALT/SGPT) 38 U/L (14-59) Alkaline Phosphatase 99 U/L (46-116) Total Protein 7.8 g/dL (6.4-8.2) Albumin 3.5 g/dL (3.4-5.0) Albumin/Globulin Ratio 0.8 (1.0-1.7) Amylase Level 116 U/L (25-115) Lipase 97 U/L (73-393) Brief Hospital Course Ms. Graves is a 72 old very pleasant female who was admitted observation overnight after pain post-ERCP. He has history of cholecystectomy some 50 years ago, but since then recurrent stones. Admitted under GI service with consult to us for postop pain. Otherwise she did pretty well overnight, no needed by mouth or IV pain medicines. Ready for discharge later home. To wait for Dr. Freitas to round at around 11 AM prior to discharge No PT needs, no Rx needed Discharge time less than 30 minutes Procedures performed ERCP Discharge Information Condition at Discharge: Improved, Stable Disposition/Orders: D/C to Home Scheduled Acetaminophen (Tylenol Extra Strength) 500 Mg Tablet, 1,000 MG PO TID, (Reported ) Entered as Reported by: STEPHEN BRASHER on 02/18/151453 Last Action: Continued on 02/14/181603 by TY PARMAR Aspirin (Aspirin) 81 Mg Tab.chew, 1 TAB PO DAILY, #30 Ref 3 (Reported) Entered as Reported by: THELMA KHAN on 02/14/182020 Last Action: New Order on 02/14/182020 by THELMA KHAN Chlorthalidone (Chlorthalidone) 25 Mg Tablet, 0.5 TAB PO QODAY, #30 Ref 5 ( Reported) Entered as Reported by: STEPHEN BRASHER on 02/18/151453 Last Action: Continued on 02/14/181603 by TY PARMAR Diclofenac Sodium (Diclofenac Sodium) 100 Gm Gel..gram., 100 GM TP PRN, ( Reported) Entered as Reported by: THELMA KHAN on 02/14/182020 Last Action: New Order on 02/14/182020 by THELMA KHAN Dicyclomine Hcl (Dicyclomine Hcl) 20 Mg Tablet, 1 TAB PO DAILY, #30 Ref 1 ( Reported) Entered as Reported by: STEPHEN BRASHER on 02/18/151453 Last Action: Converted on 02/14/181603 by TY PARMAR Echinacea Purpurea Aerial (Echinacea) 350 Mg Capsule, 760 MG PO DAILY, (Reported ) Entered as Reported by: THELMA KHAN on 02/14/182020 Last Action: New Order on 02/14/182020 by THELMA KHAN Esomeprazole Magnesium (Nexium Capsule) 40 Mg Capsule.dr, 1 CAP PO DAILY, #30 Ref 5 (Reported) Entered as Reported by: STEPHEN BRASHER on 02/18/151453 Last Action: Converted on 02/14/181603 by TY PARMAR Gabapentin (Gabapentin) 600 Mg Tablet, 600 MG PO PRN DAILY, (Reported) Entered as Reported by: THELMA KHAN on 02/14/182020 Last Action: New Order on 02/14/182020 by THELMA KHAN Glucosamine Sulfate 2KCL (Glucosamine Sulfate) 1,000 Mg Capsule, 1,000 MG PO BID , (Reported) Entered as Reported by: THELMA KHAN on 02/14/182020 Last Action: New Order on 02/14/182020 by THELMA KHAN Irbesartan (Irbesartan) 300 Mg Tablet, 1 TAB PO DAILY, #30 Ref 5 (Reported) Entered as Reported by: STEPHEN BRASHER on 02/18/15 1454 Last Action: Converted on 02/14/181603 by TY PARMAR Lactobacillus Acidophilus (Acidophilus) 1 Each Capsule, 1 EACH PO DAILY, ( Reported) Entered as Reported by: THELMA KHAN on 02/14/182020 Last Action: New Order on 02/14/182020 by THELMA KHAN Meloxicam (Meloxicam) 15 Mg Tablet, 1 TAB PO DAILY, #30 Ref 2 (Reported) Entered as Reported by: ROXI OSMAN on 02/14/18 1258 Last Action: Converted on 02/14/181603 by TY PARMAR Metoprolol Succinate (Metoprolol Succinate ( Xl )) 100 Mg Tab.er.24h, 50 MG PO DAILY for FOR HYPERTENSION, #30 Ref 0 (Reported) Entered as Reported by: STONEY HAM on 04/22/15 1037 Last Action: Continued on 02/14/181603 by TY PARMAR Multivitamin (Multi Vitamin Daily) 1 Each Tablet, 1 EACH PO DAILY, (Reported) Entered as Reported by: THELMA KHAN on 02/14/182020 Last Action: New Order on 02/14/182020 by THELMA KHAN Ursodiol (Ursodiol) 300 Mg Capsule, 900 MG PO TIDAC, (Reported) Entered as Reported by: THELMA KHAN on 02/14/182020 Last Action: New Order on 02/14/182020 by THELMA KHAN Scheduled PRN Tramadol Hcl (Tramadol Hcl) 50 Mg Tablet, 100 MG PO TID PRN for PAIN, Ref 0 ( Reported) Entered as Reported by: THELMA KHAN on 02/14/182020 Last Action: New Order on 02/14/182020 by THELMA KHAN Miscellaneous Medications Glucosamine/D3/Boswellia Cierra (Osteo Bi-Flex Caplet) 1 Each Tablet, 1 EACH PO, (Reported) Entered as Reported by: STEPHEN BRASHER on 02/18/151453 Last Action: HELD on 02/14/181603 by TY PARMAR Multivitamin (Multi Vitamin Daily) 1 Each Tablet, 1 EACH PO, (Reported) Entered as Reported by: STEPHEN BRASHER on 02/18/151453 Last Action: HELD on 02/14/181603 by TY PARMAR Discontinued Medications Calcium Carbonate/Vitamin D3 (Calcium 600 + D Tablet) 1 Each Tablet, 1 EACH PO, (Reported) Entered as Reported by: STEPHEN BRASHER on 02/18/151453 Last Action: Discontinued on 02/14/182020 by THELMA KHAN Gabapentin (Gabapentin) 300 Mg Capsule, 300 MG PO TID, (Reported) Discontinued Reason: Prescription changed Entered as Reported by: ROXI OSMAN on 02/14/18 1258 Last Action: Converted on 02/14/181603 by TY PARMAR Irbesartan (Irbesartan) 300 Mg Tablet, 1 TAB PO DAILY, #30 Ref 5 (Reported) Entered as Reported by: KEKE TEJEDA on 06/04/15 1008 Last Action: Discontinued on 02/14/182020 by ISIS HOUSTON MD Feb 15, 2018 09:34
[2018-02-15 11:00] VITALS: BP 109/58
[2018-02-16] MEDS ORDERED: CHLORTHALIDONE 25 MG TABLET. PO SCH (09:00)
== END 2018-02-15 13:00 | disposition home or self-care (01) ==
LOC: SURG 11:58 → 5 SOUTH 16:06
PROVIDERS: ADMIT Internal Medicine; ATTEND Internal Medicine Gastroenterology
DX: K80.50 Calculus of bile duct without cholangitis or cholecystitis without obstruction (principal); D69.2 Other nonthrombocytopenic purpura; E66.9 Obesity, unspecified; I10 Essential (primary) hypertension; K57.30 Diverticulosis of large intestine without perforation or abscess without bleeding; K85.90 Acute pancreatitis without necrosis or infection, unspecified; Z80.1 Family history of malignant neoplasm of trachea, bronchus and lung; Z68.35 Body mass index [BMI] 35.0-35.9, adult; Z79.82 Long term (current) use of aspirin; Z90.49 Acquired absence of other specified parts of digestive tract
CPT/HCPCS: 36415; 43264; 74328; 80053; 82150; 83690; 85025; C1726; G0378; G0379; J0330; J1100; J1885; J2001; J2405; J2704; J3490; Q9967; S0028; 96374

== ENCOUNTER → 2019-02-07 | Day surgery (SDC) | payer BC, MEDICARE ==
[~2019-02-07] MED LIST changes: +ASPI-630 PO; -CHLO25TA PO; +CHLO25TA10 PO; +DICL100G24 TP; +ECHI350C PO; +GABA300C18 PO; +GABA600T7 PO; +GLUC100016 PO; +IOHEXOL 300 MG/ML 100ML VIAL. IV ONE; +IOHEXOL 300 MG/ML 100ML VIAL. ONE; +LACT1CAP2 PO; -LIDOCAINE 1% PF 2 ML VIAL. ID PRN; +LIDOCAINE 2% PF 5 ML VIAL. ONE; +MELO15TA23 PO; -MIDAZOLAM HCL/PF 2 MG/2 ML VIAL. IV PRN; +ONDANSETRON PF 4 MG/2 ML VIAL. ONE; +SCOPOLAMINE 1.5MG PATCH. TD ONE; +URSO300C26 PO; -fentaNYL PF VIAL 100 MCG/2 ML VIAL IV PRN
--- NOTE | 2019-02-07 14:31 | RAD ---
Exam: Fluoroscopic Images from ERCP Clinical history: Stone removal Comparison: 02/14/2018 Findings and Impression: 3 intraoperative fluoroscopic views from ERCP were submitted for interpretation. Images demonstrate steps towards opacification of the biliary tree. For additional details, please see the ERCP Procedure Report from the GI Lab. Fluoroscopy time: 1.2 minutes Electronically signed by: Jaret Munguia MD (02/07/2019 2:28 PM) [facility]
--- NOTE | 2019-02-07 15:01 | HP ---
ADMIT DATE: 02/07/2019 REFERRING PHYSICIAN: Luis Manuel Tee DO REASON FOR CONSULTATION: Recurrent common duct stones and abdominal pain. HISTORY OF PRESENT ILLNESS: A 73-year-old female with past medical history significant for hypertension, choledocholithiasis, diverticular diseases, seen for recurrent abdominal pain, consistent with her previous stone. She is on Actigall therapy despite having previous sphincterotomy and cholecystectomy. She has recurrent stones on a regular basis, is here today for possible stone extraction. Risks and benefits of procedure have been discussed. The patient is willing to proceed. PAST MEDICAL HISTORY: Status post paulina, hypertension, diverticulosis, choledocholithiasis. ALLERGIES: PENICILLIN, ERYTHROMYCIN, LEVOFLOXACIN, NITROFURANTOIN, SULFA AND TRIMETHOPRIM. MEDICATIONS: Include aspirin, diclofenac, dicyclomine, Akinesia, Nexium, gabapentin, glucosamine, irbesartan, lactobacillus, metoprolol, multivitamins, tramadol, and ursodiol 900 mg p.o. t.i.d. FAMILY AND SOCIAL HISTORY: She is retired. Does not drink or smoke. FAMILY HISTORY: Noncontributory. PAST SURGICAL HISTORY: Status post cholecystectomy. REVIEW OF SYSTEMS: Per records. PHYSICAL EXAMINATION: GENERAL: Reveals a well-nourished, well-developed female, who is alert, cooperative, in no acute distress. VITAL SIGNS: Temperature 97.8, pulse 90, respirations 20. HEENT: Normocephalic, atraumatic head. Pupils and extraocular muscles are not tested. Sclerae anicteric. NECK: Supple. LUNGS: Clear. CARDIOVASCULAR: Reveals an S1, S2 without S3, S4 or appreciable murmur. ABDOMEN: Reveals soft abdomen, normal bowel sounds, without appreciable hepatosplenomegaly. EXTREMITIES: Reveals no cyanosis, clubbing or edema. IMPRESSION: Abdominal pain status post cholecystectomy, history of choledocholithiasis on Actigall therapy. We recommend endoscopic retrograde cholangiopancreatography with possible stone extraction. Risks and benefits have been discussed with the patient including risk of perforation and is willing to proceed at this time. TD MONTAÑO MD DR: LAURA/soren JOB#: [id number] / [id number]
== END ==
LOC: ENDOS 09:56
PROVIDERS: ATTEND Internal Medicine Gastroenterology
DX: K80.50 Calculus of bile duct without cholangitis or cholecystitis without obstruction (principal); K57.30 Diverticulosis of large intestine without perforation or abscess without bleeding; I10 Essential (primary) hypertension; Z88.1 Allergy status to other antibiotic agents; Z88.0 Allergy status to penicillin; Z88.8 Allergy status to other drugs, medicaments and biological substances; Z79.82 Long term (current) use of aspirin
CPT/HCPCS: 43264; 74330; C1726; J2001; J2405; Q9967

== ENCOUNTER → 2020-09-22 | Day surgery (SDC) | payer BC ==
[~2020-09-22] MED LIST changes: +DEXAMETHASONE SOD PHOS 20 MG/5 ML VIAL. ONE; -DICL100G18 TP; +DICL100G54 TP; -IOHEXOL 300 MG/ML 100ML VIAL. IV ONE; +IRBE300T23 PO; -IRBE300T3 PO; +PROPOFOL 10 MG/ML (20ML) VIAL. IV ONE; -SCOPOLAMINE 1.5MG PATCH. TD ONE; +SCOPOLAMINE 1.5MG PATCH. TD SCH; +SUCCINYLCHOLINE 200 MG/10 ML VIAL. ONE
[2020-09-22 08:06] VITALS: BP 170/78
--- NOTE | 2020-09-22 08:16 | RAD ---
INDICATION: Reason: HX OF STONES, LITHOGENISIS,FL TIME=1:35 MIN,STONE REMOVED. / Spl. Instructions: P T HAS HAD GB REMOVED, / History: . Fluoro for procedure. IMPRESSION: Fluoroscopy was utilized by the clinical service to assist with their procedure. There are 1 saved images/series. The limited saved images show spot image of upper abdomen with contrast injection of common bile duct which appears prominent in size with balloon inflated within. 1 minute 35 seconds of fluoroscopy time was used. This dictation is for the usage of fluoroscopy only. Please see the clinical service's procedure note for detail on the procedure. Electronically signed by: Bowen Milian MD (09/22/2020 8:14 AM) [id number]
== END | disposition home or self-care (01) ==
LOC: ENDOS 06:11
PROVIDERS: ATTEND Internal Medicine Gastroenterology
DX: K80.50 Calculus of bile duct without cholangitis or cholecystitis without obstruction (principal); K83.8 Other specified diseases of biliary tract; I10 Essential (primary) hypertension; K21.9 Gastro-esophageal reflux disease without esophagitis; M19.90 Unspecified osteoarthritis, unspecified site; M81.0 Age-related osteoporosis without current pathological fracture; Z98.51 Tubal ligation status; Z90.710 Acquired absence of both cervix and uterus; Z90.49 Acquired absence of other specified parts of digestive tract; Z98.890 Other specified postprocedural states; Z79.82 Long term (current) use of aspirin; Z79.899 Other long term (current) drug therapy; Z88.0 Allergy status to penicillin; Z88.1 Allergy status to other antibiotic agents; Z88.8 Allergy status to other drugs, medicaments and biological substances; Z20.822 Contact with and (suspected) exposure to COVID-19
CPT/HCPCS: 43264; 74330; 87426; C1769; J0330; J1100; J2405; J2704; Q9967